=== PATIENT | female | born 1975 | race Caucasian/White ===

== ENCOUNTER 2018-12-22 19:46 | Emergency (ER) | payer MEDICAID ==
[2018-12-22] MEDS ORDERED: Acetaminophen/oxyCODONE 325-5 MG Tab PO ONE (20:50)
[2018-12-22] MEDS ORDERED: Ketorolac 60 MG/2 ML SDV IM ONE (20:50)
--- NOTE | 2018-12-22 21:29 | EDM.PDOC ---
ED HPI GENERAL MEDICAL PROBLEM - General Chief Complaint: Upper Extremity Injury/Pain Stated Complaint: RIGHT SHOULDER PAIN Time Seen by Provider: 12/22/18 21:31 Source of Information: Reports: Patient History Limitations: Reports: No Limitations - History of Present Illness INITIAL COMMENTS - FREE TEXT/NARRATIVE: pt arrived with acute rt shoulder pain. She is having trouble lifting the arm. She has not had a injury. Onset: Other ( Pt got up Sat Am with the pain in the arm. ) Duration: Hour(s): Location: Reports: Generalized Associated Symptoms: Reports: No Other Symptoms right shoulder Pain Score (Numeric/FACES): 8 - Related Data Allergies Allergy/AdvReac Type Severity Reaction Status Date / Time Penicillins Allergy Other Verified 12/22/18 20:16 Home Meds: Home Meds Citalopram [Citalopram HBr] 20 mg PO DAILY 12/22/18 [History] Ferrous Sulfate 1 tab PO DAILY 12/22/18 [History] QUEtiapine Fumarate [Quetiapine Fumarate] 1 tab PO BEDTIME 12/22/18 [History] busPIRone [Buspar] 1 tab PO BEDTIME 12/22/18 [History] Past Medical History Cardiovascular History: Reports: Hypertension Gastrointestinal History: Reports: GERD 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 Psychiatric History: Reports: Anxiety, Depression, PTSD Endocrine/Metabolic History: Reports: Diabetes, Type II, Obesity/BMI 30+ - Past Surgical History GI Surgical History: Reports: Bariatric Procedure, EGD Social & Family History - Tobacco Use Smoking Status *Q: Never Smoker - Caffeine Use Caffeine Use: Reports: Tea - Recreational Drug Use Recreational Drug Use: No Review of Systems - Review of Systems Review Of Systems: See Below Constitutional: Reports: No Symptoms Eyes: Reports: No Symptoms Ears: Reports: No Symptoms Nose: Reports: No Symptoms Mouth/Throat: Reports: No Symptoms Respiratory: Reports: No Symptoms Cardiovascular: Reports: No Symptoms GI/Abdominal: Reports: No Symptoms Genitourinary: Reports: No Symptoms Musculoskeletal: Reports: Other (pain in the rt shoulder. ) ED EXAM, GENERAL - Physical Exam Exam: See Below Free Text/Narrative:: pt arrived with pain in the rt shoulder and having difficulty lifting the arm. This came om without injury. Exam Limited By: No Limitations General Appearance: Alert, Anxious, Severe Distress Ears: Normal TMs Nose: Normal Inspection Throat/Mouth: Normal Inspection Head: Atraumatic Neck: Normal Inspection Respiratory/Chest: No Respiratory Distress Extremities: Other ( rt shoulder is very tender anteriorly and at the top of the shoulder. She is having a problem lifting the arm. ) Neurological: Alert, Oriented, Normal Cognition Course - Vital Signs Last Recorded V/S: Last Vital Signs Temp 35.4 C 12/22/18 20:17 Pulse 74 12/22/18 20:17 Resp 16 12/22/18 20:17 BP 151/93 H 12/22/18 20:17 Pulse Ox 100 12/22/18 20:17 - Orders/Labs/Meds Orders: Active Orders 24 hr Category Date Time Status Shoulder Comp Rt [CR] Stat Exams 12/22/18 20:49 Taken Meds: Medications Discontinued Medications Generic Name Dose Route Start Last Admin Trade Name Freq PRN Reason Stop Dose Admin Ketorolac Tromethamine 60 mg 12/22/18 20:50 12/22/18 21:09 Toradol IM 12/22/18 20:51 60 mg ONETIME ONE Administration Oxycodone/Acetaminophen 1 tab 12/22/18 20:50 12/22/18 21:09 Percocet 325-5 Mg PO 12/22/18 20:51 1 tab ONETIME ONE Administration - Re-Assessments/Exams Free Text/Narrative Re-Assessment/Exam: 12/22/18 21:37 xray did not reveal acute problems. Departure - Departure Time of Disposition: 21:27 Disposition: Home, Self-Care 01 Condition: Fair Clinical Impression: Bursitis, Tendonitis of shoulder, right - Discharge Information Referrals: PCP,None [Primary Care Provider] - Forms: ED Department Discharge Care Plan Goals: moist warm heat to shoulder, ortho appt tomorrow for steriod injection, norco 5/ 325 q6h prn for pain. Motrin 600mg qid - My Orders Last 24 Hours: My Active Orders 12/22/18 20:49 Shoulder Comp Rt [CR] Stat - Assessment/Plan Last 24 Hours: My Active Orders 12/22/18 20:49 Shoulder Comp Rt [CR] Stat
--- NOTE | 2018-12-22 21:32 | CRLCR ---
Indication: Pain Technique: Four views of the right shoulder Comparison: None available Findings: Bones: Alignment is normal. No fractures or bone lesions. Joint spaces: Unremarkable. Soft tissues: Unremarkable. Impression: Negative. Dictated by Josh Wright MD @ 12/22/2018 9:31:26 PM Dictated by: Josh Wright MD @ 12/22/2018 21:31:30 (Electronically Signed)
== END 2018-12-22 21:43 | disposition home or self-care (01) ==
LOC: JP.ED 19:46
DX: M75.91 Shoulder lesion, unspecified, right shoulder (principal); M71.9 Bursopathy, unspecified; I10 Essential (primary) hypertension; F32.9 Major depressive disorder, single episode, unspecified; K21.9 Gastro-esophageal reflux disease without esophagitis; E11.9 Type 2 diabetes mellitus without complications; Z88.0 Allergy status to penicillin; Z79.899 Other long term (current) drug therapy
CPT/HCPCS: 73030; 96372; 99284; A9270; J1885

== ENCOUNTER 2019-02-09 22:56 | Emergency (ER) | payer MEDICAID ==
[2019-02-09] MEDS ORDERED: methylPREDNISolone Sodium Succinate 125 MG/2 ML SDV IM ONE (23:33)
--- NOTE | 2019-02-09 23:37 | EDM.PDOC ---
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) Associated Symptoms: Reports: Fever/Chills (chills and body aches started this evening) Treatments 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 Treatments (gargled with salt water) Throat Pain Score (Numeric/FACES): 8 - Related Data Allergies Allergy/AdvReac Type Severity Reaction Status Date / Time Penicillins Allergy Other Verified 02/09/19 23:07 Home Meds: Home Meds Citalopram [Citalopram HBr] 20 mg PO DAILY 12/22/18 [History] Ferrous Sulfate 1 tab PO DAILY 12/22/18 [History] QUEtiapine Fumarate [Quetiapine Fumarate] 1 tab PO BEDTIME 12/22/18 [History] busPIRone [Buspar] 1 tab PO BEDTIME 12/22/18 [History] Past Medical History HEENT History: Reports: Impaired Vision Cardiovascular History: Reports: Hypertension Gastrointestinal History: Reports: GERD 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 Musculoskeletal History: Reports: Other (See Below) Other Musculoskeletal History: right shoulder pain Psychiatric History: Reports: Anxiety, Depression, PTSD Endocrine/Metabolic History: Reports: Diabetes, Type II, Obesity/BMI 30+ - Past Surgical History Head Surgeries/Procedures: Reports: None HEENT Surgical History: Reports: Tonsillectomy Cardiovascular Surgical History: Reports: None GI Surgical History: Reports: Bariatric Procedure, EGD Endocrine Surgical History: Reports: None Musculoskeletal Surgical History: Reports: None Dermatological Surgical History: Reports: None Social & Family History - Tobacco Use Smoking Status *Q: Never Smoker Second Hand Smoke Exposure: No - Caffeine Use Caffeine Use: Reports: Tea - Recreational Drug Use Recreational Drug Use: No ED ROS ENT - Review of Systems Review Of Systems: See Below Constitutional: Reports: Chills, Malaise, Other (body ache) HEENT: Reports: Throat Pain Respiratory: Reports: No Symptoms Cardiovascular: Reports: No Symptoms Endocrine: Reports: No Symptoms Skin: Reports: No Symptoms Neurological: Reports: No Symptoms Psychiatric: Reports: No Symptoms Hematologic/Lymphatic: Reports: No Symptoms Immunologic: Reports: No Symptoms ED EXAM, ENT - Physical Exam Exam: See Below Exam Limited By: No Limitations General Appearance: Alert, WD/WN, No Apparent Distress Ears: Normal External Exam, Normal Canal, Hearing Grossly Normal, Normal TMs Nose: Normal Inspection, Normal Mucousa, No Blood Mouth/Throat: Normal Inspection, Normal Gums, Normal Lips, Hoarse Voice, Pharyngeal Erythema, Throat Pain, Other (tonsils absent due to Tonsillectomy) Head: Atraumatic, Normocephalic Neck: Supple, Lymphadenopathy (R), Lymphadenopathy (L), Tender Lateral Respiratory/Chest: No Respiratory Distress, Lungs Clear, Normal Breath Sounds, No Accessory Muscle Use Cardiovascular: Regular Rate, Rhythm, No Murmur Skin: Warm, Dry, Intact, Normal Color, No Rash Lymphatic: Adenopathy (neck) Course - Vital Signs Last Recorded V/S: Last Vital Signs Temp 35.1 C L 02/09/19 23:08 Pulse 74 02/09/19 23:08 Resp 13 02/09/19 23:08 BP 132/83 02/09/19 23:08 Pulse Ox 99 02/09/19 23:08 - Orders/Labs/Meds Orders: Active Orders 24 hr Category Date Time Status CULTURE STREP A CONFIRMATION [] Stat Lab 02/09/19 23:16 Results STREP SCRN A RAPID W CULT CONF [RM] Stat Lab 02/09/19 23:16 Results Meds: Medications Discontinued Medications Generic Name Dose Route Start Last Admin Trade Name Shashank PRN Reason Stop Dose Admin Methylprednisolone Sodium Succinate 125 mg 02/09/19 23:33 02/09/19 23:38 Solu-Medrol IM 02/09/19 23:34 125 mg ONETIME ONE Administration Departure - Departure Time of Disposition: 23:34 Disposition: Home, Self-Care 01 Condition: Good Clinical Impression: Exudative pharyngitis - Discharge Information *PRESCRIPTION DRUG MONITORING PROGRAM REVIEWED*: Not Applicable *COPY OF PRESCRIPTION DRUG MONITORING REPORT IN PATIENT EMILE: Not Applicable Instructions: Strep Throat, [id number] Referrals: PCP,None [Primary Care Provider] - Forms: ED Department Discharge Care Plan Goals: Exudative Pharyngitis -Solumedrol 125mg IM in ER -Zithromax as directed x 5 days -continue Tylenol or Motrin for pain or fever -Tylenol with codeine for acute pain not relieve by Tylenol or Motrin Return to Clinic or ER if not improved or symptoms worsen. - Problem List & Annotations (1) Exudative pharyngitis SNOMED Code(s): 033450380 Code(s): J02.9 - ACUTE PHARYNGITIS, UNSPECIFIED Status: Acute Priority: High Current Visit: Yes - Problem List Review Problem List Initiated/Reviewed/Updated: Yes - My Orders Last 24 Hours: My Active Orders 02/09/19 23:16 CULTURE STREP A CONFIRMATION [RM] Stat STREP SCRN A RAPID W CULT CONF [RM] Stat - Assessment/Plan Last 24 Hours: My Active Orders 02/09/19 23:16 CULTURE STREP A CONFIRMATION [RM] Stat STREP SCRN A RAPID W CULT CONF [RM] Stat Plan: Exudative Pharyngitis -Solumedrol 125mg IM in ER -Zithromax as directed x 5 days -continue Tylenol or Motrin for pain or fever -Tylenol with codeine for acute pain not relieve by Tylenol or Motrin Return to Clinic or ER if not improved or symptoms worsen.
== END 2019-02-09 23:43 | disposition home or self-care (01) ==
LOC: JP.ED 22:56
DX: J02.9 Acute pharyngitis, unspecified (principal); I10 Essential (primary) hypertension; K21.9 Gastro-esophageal reflux disease without esophagitis; Z88.0 Allergy status to penicillin; Z79.899 Other long term (current) drug therapy
CPT/HCPCS: 87081; 87430; 96372; 99283; J2930